=== PATIENT | female | born 1980 | race Asian ===

== ENCOUNTER 2020-05-25 10:26 | Outpatient (REF) | payer OTHER, SELFPAY ==
[2020-05-25 11:32] LABS: Estimated Average Glucose 103 mg/dL; Hemoglobin A1c % 5.2 %
== END 2020-05-25 10:27 | disposition home or self-care (01) ==
LOC: HO.LAB 10:26
PROVIDERS: Visit Provider Family Medicine
DX: Z13.1 Encounter for screening for diabetes mellitus (principal)
CPT/HCPCS: 36415; 83036